=== PATIENT | male | born 1965 | race Caucasian/White ===

== ENCOUNTER 2024-08-30 01:53 | Emergency (ER) | payer MEDICAID ==
[2024-08-30] MEDS: Acetaminophen 325 MG Tab PO ONE (02:22)
== END 2024-08-30 03:03 | disposition home or self-care (01) ==
LOC: JD.ED 01:53
DX: M25.512 Pain in left shoulder (principal); Z88.6 Allergy status to analgesic agent; Z79.899 Other long term (current) drug therapy
CPT/HCPCS: 73030; 99283; A9270